=== PATIENT | male | born 1970 | race Caucasian/White ===

== ENCOUNTER 2019-02-22 05:02 | Emergency (ER) | payer OTHER ==
[~2019-02-22] VITALS: Ht 172.7 cm; Wt 72.6 kg
[2019-02-22] MEDS ORDERED: INTESTINEX680 M1 (05:08)
== END 2019-02-22 17:08 | disposition home or self-care (01) ==
LOC: ER 05:02
DX: I88.0 Nonspecific mesenteric lymphadenitis (principal); R10.32 Left lower quadrant pain

== ENCOUNTER 2019-04-02 04:59 | Emergency (ER) | payer OTHER ==
[~2019-04-02] VITALS: Ht 172.7 cm; Wt 72.6 kg
[~2019-04-02 04:59] MED LIST: INTESTINEX680 M1
== END 2019-04-02 11:48 | disposition home or self-care (01) ==
LOC: ER 04:59
DX: R10.32 Left lower quadrant pain (principal)

== ENCOUNTER 2019-09-04 08:00 | Emergency (ER) | payer OTHER ==
[~2019-09-04] VITALS: Ht 172.7 cm; Wt 74.8 kg
== END 2019-09-04 13:51 | disposition home or self-care (01) ==
LOC: ER 08:00
DX: R10.11 Right upper quadrant pain (principal)

== ENCOUNTER 2020-04-02 11:25 | Inpatient (IN) | payer OTHER ==
[~2020-04-02] VITALS: Ht 172.7 cm; Wt 74.8 kg
[2020-04-09] MEDS ORDERED: AMOX-CLAV 875-1 EACH PO (13:37)
[2020-04-09] MEDS ORDERED: INTESTINEX680 M1 PO (13:38)
[2020-04-09] MEDS ORDERED: PEPCID20 MG PO (13:38)
== END 2020-04-09 14:35 | disposition home or self-care (01) | DRG 392 ==
LOC: ER 11:25 → MEDJ 19:23
PROVIDERS: ADMIT Internal Medicine; ATTEND Internal Medicine
PROC: BW21ZZZ Computerized Tomography (CT Scan) of Abdomen and Pelvis (ICD-10-PCS; principal; 2020-04-02)
PROC: 05HY33Z Insertion of Infusion Device into Upper Vein, Percutaneous Approach (ICD-10-PCS; 2020-04-03)
PROC: 3E0436Z Introduction of Nutritional Substance into Central Vein, Percutaneous Approach (ICD-10-PCS; 2020-04-03)
PROC: BW21ZZZ Computerized Tomography (CT Scan) of Abdomen and Pelvis (ICD-10-PCS; 2020-04-07)
DX: K57.32 Diverticulitis of large intestine without perforation or abscess without bleeding (principal); R10.32 Left lower quadrant pain; N20.0 Calculus of kidney

== ENCOUNTER 2020-05-29 09:30 | Inpatient (IN) | payer OTHER ==
[~2020-05-29] VITALS: Ht 172.7 cm; Wt 70.3 kg
[~2020-05-29 09:30] MED LIST changes: +AMOX-CLAV 875-1 EACH PO; +INTESTINEX680 M1 PO; +PEPCID20 MG PO
[2020-05-29] MEDS ORDERED: PROTONIX20 MG PO (13:34)
== END 2020-06-08 13:55 | disposition home or self-care (01) | DRG 331 ==
LOC: SURH 06-05 07:00 → SURG 06-05 08:00 → O/R 06-05 08:00 → SURH 06-05 09:30 → SURG 06-05 16:46
PROVIDERS: ADMIT Surgery; ATTEND Surgery
PROC: 0DBN4ZZ Excision of Sigmoid Colon, Percutaneous Endoscopic Approach (ICD-10-PCS; 2020-06-05)
PROC: 0DJD8ZZ Inspection of Lower Intestinal Tract, Via Natural or Artificial Opening Endoscopic (ICD-10-PCS; 2020-06-05)
PROC: 0DTP4ZZ Resection of Rectum, Percutaneous Endoscopic Approach (ICD-10-PCS; principal; 2020-06-05 07:00)
DX: K57.20 Diverticulitis of large intestine with perforation and abscess without bleeding (principal); Z20.828 Contact with and (suspected) exposure to other viral communicable diseases

== ENCOUNTER 2022-08-16 19:46 | Emergency (ER) | payer OTHER ==
[~2022-08-16] VITALS: Ht 172.7 cm; Wt 78.0 kg
[~2022-08-16 19:46] MED LIST changes: +PROTONIX20 MG PO
[2022-08-16] MEDS ORDERED: NABUMETONE750 MG PO (21:58)
[2022-08-16] MEDS ORDERED: MEDROLPACK PO (21:58)
[2022-08-16] MEDS ORDERED: NORFLEX100MG PO (21:58)
== END 2022-08-16 23:28 | disposition home or self-care (01) ==
LOC: ER 19:46
DX: M54.50 Low back pain, unspecified (principal); Z88.8 Allergy status to other drugs, medicaments and biological substances

== ENCOUNTER 2023-01-19 18:18 | Emergency (ER) | payer OTHER ==
[~2023-01-19] VITALS: Ht 172.7 cm; Wt 79.4 kg
[~2023-01-19 18:18] MED LIST changes: +MEDROLPACK PO; +NABUMETONE750 MG PO; +NORFLEX100MG PO
== END 2023-01-19 20:54 | disposition home or self-care (01) ==
LOC: ER 18:18
DX: R53.81 Other malaise (principal); R51.9 Headache, unspecified; Z88.8 Allergy status to other drugs, medicaments and biological substances

== ENCOUNTER 2023-01-28 20:51 | Emergency (ER) | payer OTHER ==
[~2023-01-28] VITALS: Ht 172.7 cm; Wt 79.4 kg
== END 2023-01-29 11:41 | disposition home or self-care (01) ==
LOC: ER 20:51
DX: R07.9 Chest pain, unspecified (principal); Z88.2 Allergy status to sulfonamides; Z88.8 Allergy status to other drugs, medicaments and biological substances; Z20.822 Contact with and (suspected) exposure to COVID-19

== ENCOUNTER 2023-02-05 09:21 | Emergency (ER) | payer OTHER ==
[~2023-02-05] VITALS: Ht 172.7 cm; Wt 79.4 kg
[2023-02-05] MEDS ORDERED: METOPROLOL SUCC50 MG PO (09:43)
== END 2023-02-05 11:55 ==
LOC: ER 09:21
DX: I10 Essential (primary) hypertension (principal); Z88.8 Allergy status to other drugs, medicaments and biological substances

== ENCOUNTER 2023-04-02 18:29 | Emergency (ER) | payer OTHER ==
[~2023-04-02] VITALS: Ht 172.7 cm; Wt 82.1 kg
[~2023-04-02 18:29] MED LIST changes: +METOPROLOL SUCC50 MG PO
[2023-04-02] MEDS ORDERED: HYDROCHLOROTH12.5 MG PO (18:51)
== END 2023-04-02 21:09 | disposition home or self-care (01) ==
LOC: ER 18:29
DX: M62.838 Other muscle spasm (principal); I10 Essential (primary) hypertension

== ENCOUNTER 2023-07-10 11:07 | Emergency (ER) | payer OTHER ==
[~2023-07-10] VITALS: Ht 172.7 cm; Wt 81.6 kg
[~2023-07-10 11:07] MED LIST changes: +HYDROCHLOROTH12.5 MG PO
[2023-07-10 15:20] LABS: HEMATOCRIT 42.7 % (39.0-48.0); HEMOGLOBIN 14.1 g/dL (13-16.00); MEAN CELL VOLUME 91.9 fL (80.0-100.00); MEAN CORPUSCULAR HEMOGLOBIN 30.4 pg (27.00-32.0); MEAN CORPUSCULAR HGB CONC 33.1 g/dl (32.0-36.0); PLATELET COUNT 274 K/uL (150-450); RED BLOOD COUNT 4.65 M/uL (4.00-6.00); RED CELL DISTRIBUTION WIDTH 13.2 % (11.5-14.5)
== END 2023-07-10 16:09 | disposition home or self-care (01) ==
LOC: ER 11:07
PROVIDERS: General Practice
DX: B34.8 Other viral infections of unspecified site (principal); Z20.822 Contact with and (suspected) exposure to COVID-19

== ENCOUNTER 2024-11-11 11:28 | Emergency (ER) | payer OTHER ==
[~2024-11-11] VITALS: Ht 152.4 cm; Wt 79.4 kg
[2024-11-11] MEDS ORDERED: KETOROLAC TROMETHAMINE 60 MG VIAL IM STA (13:04)
[2024-11-11] MEDS ORDERED: KETOROLAC TROMETHAMINE 60 MG VIAL IM ONE (13:16)
[2024-11-11] MEDS ORDERED: DEXAMETHASONE SODIUM PHOSPHATE 4 MG/ML VIAL IM STA (14:53)
[2024-11-11] MEDS ORDERED: DEXAMETHASONE SODIUM PHOSPHATE 4 MG/ML VIAL ONE (15:08)
== END 2024-11-11 15:17 | disposition home or self-care (01) ==
LOC: ER 11:31
DX: M79.642 Pain in left hand (principal); I10 Essential (primary) hypertension; Z88.8 Allergy status to other drugs, medicaments and biological substances

== ENCOUNTER 2025-08-16 18:58 | Emergency (ER) | payer OTHER ==
[~2025-08-16] VITALS: Ht 172.7 cm; Wt 77.1 kg
[2025-08-16 19:38] VITALS: BP 137/78; O2SAT 98
[2025-08-16] MEDS ORDERED: UROXATRAL10 MG PO (19:39)
[2025-08-16] MEDS ORDERED: KETOROLAC TROMETHAMINE 60 MG VIAL IM ONE ×3 (20:15→20:23)
[2025-08-16] MEDS ORDERED: FAMOtidine 10 MG/ML (4ML VIAL) IV ONE (20:15)
[2025-08-16] MEDS ORDERED: FAMOTIDINE/PF 20 MG/2 ML VIAL ONE (20:22)
[2025-08-16 20:56] LABS: BASO % 0.6 % (0.1-1.2); EOS # 0.37 (0.04-0.54); EOS % 5.3 % (0.7-7.0); LYMPH # 2.49 (1.18-3.74); LYMPH % 35.9 % (19.3-53.1); MEAN PLATELET VOLUME 9.30 fl (9.4-12.4); MONO # 0.53 (0.24-0.82); MONO % 7.6 % (4.7-12.5); NEUT # 3.49 (1.56-6.13); NEUT % 50.5 % (34.0-71.1); RED CELL DISTRIBUTION WIDTH 12.8 % (11.6-14.4)
[2025-08-16 21:33] LABS: COVID-19 AG NEGATIVE (NEGATIVE)
[2025-08-16 22:37] LABS: ALT/SGPT 29.0 U/L (12-78); AST/SGOT 13.0 U/L (15-37); BILIRUBIN TOTAL 0.59 mg/dL (0.3-1.2); BUN CREA RATIO 13.0 (7.0-25.0); CREATININE SERUM 1.24 mg/dL (0.70-1.30); GFR 61.22; GLOBULINA 3.8 G/DL (2.4-3.5); GLUCOSE FASTING 147.0 mg/dL (65-100); OSMOLALITY SERUM 293.0 MOSM/KG (275-295)
[2025-08-16] MEDS ORDERED: NORFLEX100MG PO (23:56)
== END 2025-08-17 00:30 | disposition home or self-care (01) ==
LOC: ER 18:59
PROVIDERS: General Practice
DX: R07.89 Other chest pain (principal); Z88.1 Allergy status to other antibiotic agents; Z88.8 Allergy status to other drugs, medicaments and biological substances; I10 Essential (primary) hypertension; K57.30 Diverticulosis of large intestine without perforation or abscess without bleeding; Z20.822 Contact with and (suspected) exposure to COVID-19